=== PATIENT | female | born 1995 | race Caucasian/White ===

== ENCOUNTER → 2016-07-29 | Outpatient (CLI) | payer OTHER ==
[2016-07-29 09:36] LABS: AUTOMATED NEUTROPHIL # 2.8 TH/MM3 (1.8-7.7); BASOPHIL % 0.6 % (0.0-2.0); EOSINOPHIL # 0.5 TH/MM3 (0-0.4); EOSINOPHIL % 9.3 % (0.0-4.0); HEMATOCRIT 38.1 % (35.0-46.0); HEMO FLAGS DIFF FINAL; LYMPH % 34.4 % (9.0-44.0); MEAN CELL VOLUME 92.4 FL (80.0-100.0); MEAN CORPUSCULAR HEMOGLOBIN 32.2 PG (27.0-34.0); MEAN CORPUSCULAR HGB CONC 34.8 % (32.0-36.0); NEUT % 47.7 % (16.0-70.0); PLATELET COUNT 310 TH/MM3 (150-450); RED BLOOD COUNT 4.12 MIL/MM3 (4.00-5.30); RED CELL DISTRIBUTION WIDTH 12.9 % (11.6-17.2); WHITE BLOOD COUNT 5.8 TH/MM3 (4.0-11.0)
[2016-07-29 10:00] LABS: ALKALINE PHOSPHATASE 72 U/L (45-117); ALT (GPT) 21 U/L (10-53); ANION GAP 8 MEQ/L (5-15); AST (GOT) 12 U/L (15-37); BICARBONATE 27.4 MEQ/L (21.0-32.0); BLOOD UREA NITROGEN 10 MG/DL (7-18); CHLORIDE 107 MEQ/L (98-107); GLOMERULAR FILTRATION RATE 96 ML/MIN (>89); GLUCOSE,FASTING 91 MG/DL (74-99); HDL CHOLESTEROL 46.3 MG/DL (40.0-60.0); LDL CHOLESTEROL 82 MG/DL (0-99); SODIUM (NA) 142 MEQ/L (136-145); TOTAL BILIRUBIN ADULT 0.5 MG/DL (0.2-1.0)
[2016-07-29 10:28] LABS: BACTERIA, URINE OCC /hpf; BLOOD, URINE NEG (NEG); COMMENT (UR) CULT NOT INDICATED; CULTURE IF INDICATED CULT NOT INDICATED; GLUCOSE,URINE NEG (NEG); KETONE, URINE NEG (NEG); NITRITE,URINE NEG (NEG); SQUAMOUS EPITHELIAL CELL URINE 9 /hpf (0-5); URINE COLOR YELLOW (YELLW/STRAW)
== END ==
LOC: ELAB 07:22
PROVIDERS: ATTEND Hospitalist
DX: Z00.00 Encounter for general adult medical examination without abnormal findings (principal)
CPT/HCPCS: 36415; 80053; 80061; 81001; 85025

== ENCOUNTER → 2017-02-22 | Outpatient (CLI) | payer OTHER ==
[2017-02-22 12:35] LABS: FREE T3 3.34 PG/ML (2.18-3.98); FREE T4 1.28 NG/DL (0.76-1.46)
[2017-02-24 03:50] LABS: IGA SERUM 193 mg/dL (81-463)
[2017-02-25 05:40] LABS: ENDOMYSIAL AB TITER ND (<1:5); TISSUE TRANSGLUTAMINASE AB LESS THAN 1 U/mL (0-4)
== END ==
LOC: ELAB 09:26
PROVIDERS: ATTEND Hospitalist
DX: K20.0 Eosinophilic esophagitis (principal); R53.83 Other fatigue; R19.7 Diarrhea, unspecified; R14.0 Abdominal distension (gaseous); R10.9 Unspecified abdominal pain; Z13.29 Encounter for screening for other suspected endocrine disorder
CPT/HCPCS: 36415; 82306; 82607; 82746; 82784; 83516; 84439; 84443; 84481

== ENCOUNTER → 2017-08-04 | Outpatient (CLI) | payer OTHER ==
[2017-08-04 10:23] LABS: AUTOMATED NEUTROPHIL # 3.6 TH/MM3 (1.8-7.7); BASOPHIL % 0.2 % (0.0-2.0); EOSINOPHIL # 0.6 TH/MM3 (0-0.4); EOSINOPHIL % 9.5 % (0.0-4.0); HEMATOCRIT 37.2 % (35.0-46.0); HEMOGLOBIN 12.9 GM/DL (11.6-15.3); LYMPH % 27.6 % (9.0-44.0); LYMPHOCYTE # 1.8 TH/MM3 (1.0-4.8); MEAN CELL VOLUME 91.7 FL (80.0-100.0); MEAN CORPUSCULAR HEMOGLOBIN 31.8 PG (27.0-34.0); MEAN CORPUSCULAR HGB CONC 34.7 % (32.0-36.0); MEAN PLATELET VOLUME 7.6 FL (7.0-11.0); MONO % 6.4 % (0.0-8.0); MONOCYTE # 0.4 TH/MM3 (0-0.9); NEUT % 56.3 % (16.0-70.0); PLATELET COUNT 350 TH/MM3 (150-450); RED BLOOD COUNT 4.06 MIL/MM3 (4.00-5.30); RED CELL DISTRIBUTION WIDTH 12.8 % (11.6-17.2); WHITE BLOOD COUNT 6.4 TH/MM3 (4.0-11.0)
[2017-08-04 10:36] LABS: AMORPHOUS SEDIMENT, URINE FEW; BACTERIA, URINE FEW /hpf; BILIRUBIN, URINE NEG (NEG); BLOOD, URINE NEG (NEG); GLUCOSE,URINE NEG (NEG); KETONE, URINE NEG (NEG); MUCUS URINE FEW /lpf (OCC); NITRITE,URINE NEG (NEG); PH, URINE 7.5 (5.0-8.5); SQUAMOUS EPITHELIAL CELL URINE 11 /hpf (0-5); URINE COLOR LIGHT-YELLOW (YELLW/STRAW); URINE LEUKOCYTE ESTERASE TRACE (NEG)
[2017-08-04 10:42] LABS: ALBUMIN 3.8 GM/DL (3.4-5.0); AST (GOT) 12 U/L (15-37); BICARBONATE 24.6 MEQ/L (21.0-32.0); BLOOD UREA NITROGEN 11 MG/DL (7-18); CALCIUM 9.2 MG/DL (8.5-10.1); CHLORIDE 108 MEQ/L (98-107); CHOLESTEROL 136 MG/DL (120-200); CREATININE 0.69 MG/DL (0.50-1.00); GLOMERULAR FILTRATION RATE 105 ML/MIN (>89); GLUCOSE,FASTING 87 MG/DL (74-99); SODIUM (NA) 141 MEQ/L (136-145)
[2017-08-04 11:07] LABS: ALKALINE PHOSPHATASE 74 U/L (45-117); ALT (GPT) 23 U/L (10-53); CHOLESTEROL/ HDL RATIO 2.98 RATIO; FREE T4 1.18 NG/DL (0.76-1.46); HDL CHOLESTEROL 45.5 MG/DL (40.0-60.0); LDL CHOLESTEROL 84 MG/DL (0-99); TOTAL BILIRUBIN ADULT 0.4 MG/DL (0.2-1.0); TOTAL PROTEIN 7.7 GM/DL (6.4-8.2); TRIGLYCERIDES 35 MG/DL (42-150)
== END ==
LOC: ELAB 07:13
PROVIDERS: ATTEND Hospitalist
DX: Z00.00 Encounter for general adult medical examination without abnormal findings (principal); R53.83 Other fatigue; E55.9 Vitamin D deficiency, unspecified; Z13.29 Encounter for screening for other suspected endocrine disorder
CPT/HCPCS: 36415; 80053; 80061; 81001; 82306; 82607; 82746; 84439; 84443; 85025